=== PATIENT | female | born 1965 | race Caucasian/White ===

== ENCOUNTER 2016-09-03 14:21 | Emergency (ER) | payer OTHER ==
[2016-09-03] MEDS ORDERED: Sodium Chloride 0.9% 1,000 ML IV ONE ×2 (15:01→16:45)
[2016-09-03] MEDS ORDERED: Sodium Chloride 0.9% 1,000 ML ONE ×2 (15:16→16:57)
[2016-09-03 15:20] LABS: RBC URINE 2 /hpf (0-3); URINE BILIRUBIN NEGATIVE (NEGATIVE); URINE BLOOD NEGATIVE (NEGATIVE); URINE COLOR Amber (YELLOW); URINE GLUCOSE (UA) NORMAL (Normal); URINE KETONE NEGATIVE (NEGATIVE); URINE LEUKOCYTE ESTERASE NEG Leu/uL (Negative); URINE PROTEIN 1+ mg/dL (NEGATIVE); WBC URINE 4 /hpf (0-5)
[2016-09-03 15:21] LABS: BASO % 0.4 % (0.0-2.0); EOS # 0.1 K/uL (0.0-0.7); EOS % 0.7 % (0.0-4.0); HEMATOCRIT 39.4 % (34.0-47.0); LYMPH % 9.7 % (20.0-40.0); MEAN CELL VOLUME 81.6 fL (81.0-99.0); MEAN CORPUSCULAR HGB CONC 31.9 g/dL (33.0-37.0); MEAN PLATELET VOLUME 10.4 fL (7.2-11.7); MONO # 0.9 K/uL (0.0-0.8); MONO % 8.5 % (0.0-10.0); PLATELET COUNT 219 K/uL (130-400); WHITE BLOOD COUNT 10.5 K/uL (4.8-10.8)
[2016-09-03 15:43] LABS: EOSINOPHIL 1 % (0-4); TOTAL CELLS COUNTED 100
[2016-09-03] MEDS ORDERED: cefTRIAXone IV 1 gm in Dextros 50 ML IVPB ONE ×2 (15:43→16:03)
[2016-09-03 15:44] LABS: NEUTROPHIL 81 % (50-75)
[2016-09-03 15:53] LABS: CHLORIDE 101 mmol/L (98-107); SODIUM 134 mmol/L (132-148)
[2016-09-03 15:55] LABS: GFR AFRICAN-AMERICAN > 60
[2016-09-03 15:56] LABS: ALB/GLOB RATIO 1.4 (1.0-2.1); ALKALINE PHOSPHATASE 95 U/L (38-126); ALT/SGPT 25 U/L (9-52); AST/SGOT 41 U/L (14-36); BILIRUBIN,TOTAL 0.8 mg/dL (0.2-1.3); BLOOD UREA NITROGEN 14 mg/dL (7-17); CALCIUM 8.9 mg/dl (8.6-10.4); CARBON DIOXIDE 22 mmol/L (22-30); GLUCOSE,RANDOM 108 mg/dL (65-105); TOTAL PROTEIN 7.4 g/dL (6.3-8.3)
--- NOTE | 2016-09-03 16:06 | C.PDOC ---
History Of Present Illness 51 yr old female presents to the ER with complaints of left flank pain since morning, which radiates to the left groin. Patient also reports of urinary retention, states she has not been able to urinate since morning. Patient reports the pain is sharp and constant, 10/10. Patient denies fever, chills, chest pain, SOB, nausea. vomiting, abdominal pain, diarrhea, constipation, weakness or numbness. Time Seen by Provider: 09/03/16 14:53 Chief Complaint (Nursing): Female Genitourinary History Per: Patient History/Exam Limitations: no limitations Onset/Duration Of Symptoms: Sudden Onset (Since morning) Current Symptoms Are (Timing): Still Present Quality Of Discomfort: Sharp Past Medical History Reviewed: Historical Data, Nursing Documentation, Vital Signs Vital Signs: Last Vital Signs Temp 98.8 F 09/03/16 15:58 Pulse 75 09/03/16 15:58 Resp 19 09/03/16 15:58 BP 108/68 09/03/16 15:58 Pulse Ox 98 09/03/16 17:24 Family History: States: No Known Family Hx - Social History Hx Alcohol Use: No Hx Substance Use: No - Immunization History Hx Tetanus Toxoid Vaccination: No Hx Influenza Vaccination: No Hx Pneumococcal Vaccination: No Review Of Systems Except As Marked, All Systems Reviewed And Found Negative. Constitutional: Negative for: Fever, Chills Cardiovascular: Negative for: Chest Pain Respiratory: Negative for: Shortness of Breath Gastrointestinal: Negative for: Nausea, Vomiting, Abdominal Pain, Diarrhea Genitourinary: Positive for: Other ((+) Urine retention) Musculoskeletal: Positive for: Back Pain (Left flank pain) Neurological: Negative for: Weakness, Numbness Physical Exam - Physical Exam Appears: Well, Non-toxic, No Acute Distress Skin: Warm, Dry, No Rash Head: Atraumatic, Normacephalic Oral Mucosa: Moist Throat: Normal, No Erythema, No Exudate, No Drooling Neck: Normal, Normal ROM, Supple Chest: Symmetrical, No Tenderness Cardiovascular: Rhythm Regular, No Murmur Respiratory: Normal Breath Sounds, No Rales, No Rhonchi, No Stridor, No Wheezing Gastrointestinal/Abdominal: Soft, Tenderness (Left side tenderness), No Guarding , No Rebound Back: CVA Tenderness (mild left ) Extremity: Normal ROM, No Swelling Neurological/Psych: Oriented x3, Normal Speech, Normal Motor ED Course And Treatment - Laboratory Results Result Diagrams: 09/03/16 15:18 09/03/16 15:18 O2 Sat by Pulse Oximetry: 98 - CT Scan/US CT - Abdomen & Pelvis Other Rad Studies (CT/US): Read By Radiologist, Radiology Report Reviewed CT/US Interpretation: PROCEDURE: CT Abdomen and Pelvis without Oral or IV contrast. HISTORY: left flank pain. COMPARISON: CT abdomen and pelvis without oral or IV contrast performed 02/27/15. TECHNIQUE: Contiguous axial images of the abdomen and pelvis. No oral or IV contrast administered. Coronal and Sagittal reformats generated and reviewed. Radiation dose: Total exam DLP = 728.56 MGy-cm. This CT exam was performed using one or more of the following dose reduction techniques: Automated exposure control, adjustment of the mA and/ or kV according to patient size, and/or use of iterative reconstruction technique. FINDINGS: There is limited evaluation of the solid organs without the administration of IV contrast. LOWER THORAX: Mild bibasilar atelectasis. No visible pleural effusion or pneumothorax. LIVER: Unremarkable unenhanced appearance. GALLBLADDER AND BILE DUCTS: Cholecystectomy. PANCREAS: Unremarkable unenhanced appearance. SPLEEN: Unremarkable unenhanced appearance. ADRENALS: Unremarkable unenhanced appearance. KIDNEYS AND URETERS : Distal left ureteral calculus with proximal hydroureteronephrosis. No right- sided hydronephrosis or obstructing renal calculus. BLADDER: Under distention of the urinary bladder limits evaluation. REPRODUCTIVE: Uterus is present. Rounded soft tissue density along the left lateral wall of the uterus likely represents an exophytic fibroid. APPENDIX: The appendix appears within normal limits of caliber. No secondary signs of acute appendicitis. BOWEL: Postsurgical gastric changes. The stomach is nondistended. Lack of oral contrast limits evaluation for bowel pathology. The bowel loops appear within normal limits of caliber without evidence of intestinal obstruction. PERITONEUM : No significant free fluid. No definite free air. LYMPH NODES: No bulky lymphadenopathy identified. VASCULATURE: No aortic aneurysm. BONES: No acute osseous abnormality is detected. OTHER FINDINGS: None. IMPRESSION: Distal 4mm left ureteral calculus with proximal hydroureteronephrosis. Rounded soft tissue density along the left lateral wall of the uterus likely represents an exophytic fibroid. Progress Note: Patient was able to urinate small amount for urinalysis. Medical Decision Making Medical Decision Making: PLAN: * CT - Abd & Pelvis * CBC * HCG Urine * Urinalysis * Pyridium PO * Morphin IVP * Toradol IVP * Cipro IVPB * Rocephin IVPB * Sodium Chloride IV Disposition - Disposition Referrals: Saji Lerma MD [Staff Provider] - [facility] [Outside] Disposition: HOME/ ROUTINE Disposition Time: 17:19 Condition: STABLE Additional Instructions: Siga con whitt doctor, o en la clinica. [place] [facility]. Regrese a la debbie de emergencua con cualquier otro problema. Prescriptions: Ciprofloxacin [Cipro] 1 tab PO BID #14 tab Ibuprofen [Motrin] 600 mg PO TID #15 tab Phenazopyridine HCl [Pyridium] 200 mg PO BID #6 tablet traMADol [Ultram] 50 mg PO BID #6 tab Instructions: Urinary Tract Infection in Women (ED), Renal Colic (ED) Forms: Gen Discharge Inst Singaporean - POA Present On Arrival: None - Clinical Impression Clinical Impression: Renal colic on left side, UTI (urinary tract infection) - Scribe Statement The provider has reviewed the documentation as recorded by the [place] Lacey Provider Attestation: All medical record entries made by the Scribe were at my direction and personally dictated by me. I have reviewed the chart and agree that the record accurately reflects my personal performance of the history, physical exam, medical decision making, and the department course for this patient. I have also personally directed, reviewed, and agree with the discharge instructions and disposition.
[2016-09-03] MEDS ORDERED: Ciprofloxacin 400mg/200ml D5W 400 MG/200 ML BAG IVPB ONE ×2 (16:30→16:57)
--- NOTE | 2016-09-03 16:59 | CT ---
PROCEDURE: CT Abdomen and Pelvis without Oral or IV contrast. HISTORY: left flank pain COMPARISON: CT abdomen and pelvis without oral or IV contrast performed 02/27/15 TECHNIQUE: Contiguous axial images of the abdomen and pelvis. No oral or IV contrast administered. Coronal and Sagittal reformats generated and reviewed. Radiation dose: Total exam DLP = 728.56 MGy-cm. This CT exam was performed using one or more of the following dose reduction techniques: Automated exposure control, adjustment of the mA and/or kV according to patient size, and/or use of iterative reconstruction technique. FINDINGS: There is limited evaluation of the solid organs without the administration of IV contrast. LOWER THORAX: Mild bibasilar atelectasis. No visible pleural effusion or pneumothorax. LIVER: Unremarkable unenhanced appearance. GALLBLADDER AND BILE DUCTS: Cholecystectomy. PANCREAS: Unremarkable unenhanced appearance. SPLEEN: Unremarkable unenhanced appearance. ADRENALS: Unremarkable unenhanced appearance. KIDNEYS AND URETERS: Distal left ureteral calculus with proximal hydroureteronephrosis. No right-sided hydronephrosis or obstructing renal calculus. BLADDER: Under distention of the urinary bladder limits evaluation. REPRODUCTIVE: Uterus is present. Rounded soft tissue density along the left lateral wall of the uterus likely represents an exophytic fibroid. APPENDIX: The appendix appears within normal limits of caliber. No secondary signs of acute appendicitis. BOWEL: Postsurgical gastric changes. The stomach is nondistended. Lack of oral contrast limits evaluation for bowel pathology. The bowel loops appear within normal limits of caliber without evidence of intestinal obstruction. PERITONEUM: No significant free fluid. No definite free air. LYMPH NODES: No bulky lymphadenopathy identified. VASCULATURE: No aortic aneurysm. BONES: No acute osseous abnormality is detected. OTHER FINDINGS: None. IMPRESSION: Distal 4mm left ureteral calculus with proximal hydroureteronephrosis. Rounded soft tissue density along the left lateral wall of the uterus likely represents an exophytic fibroid.
[2016-09-03 19:47] VITALS: BP 109/74; PULSE 74; RESP 19; TEMP 98.4; O2SAT 98
== END 2016-09-03 19:46 | disposition home or self-care (01) ==
LOC: C.ER 14:21
DX: N13.2 Hydronephrosis with renal and ureteral calculous obstruction (principal); N39.0 Urinary tract infection, site not specified
CPT/HCPCS: 74176; 80053; 81001; 84703; 85025; 87086; 96361; 96365; 96375; 99285; J0696; J0744; J1885; J2270; J7040

== ENCOUNTER 2017-07-19 09:55 | Emergency (ER) | payer OTHER ==
[2017-07-19 09:55] VITALS: BMI 33.8
[2017-07-19 10:01] VITALS: BP 121/84; PULSE 75; RESP 20; TEMP 98.3; O2SAT 100
--- NOTE | 2017-07-19 10:18 | C.PDOC ---
History Of Present Illness 52 y/o female presents to the ER complaining of pain to the heel of her left foot which has been present for the past 1 month. Patient states that the pain has been constant. Patient reports that the pain radiates to the left hip. She notes that the pain is worse with standing and walking. She rates the pain 10/ 10 on the pain scale. Patient denies trauma and other complaints. Time Seen by Provider: 07/19/17 10:06 Chief Complaint (Nursing): Lower Extremity Problem/Injury History Per: Patient History/Exam Limitations: no limitations Onset/Duration Of Symptoms: Days Current Symptoms Are (Timing): Still Present Severity: Moderate Pain Scale Rating Of: 10 Past Medical History Reviewed: Historical Data, Nursing Documentation, Vital Signs Vital Signs: Last Vital Signs Temp 98.3 F 07/19/17 09:59 Pulse 75 07/19/17 09:59 Resp 20 07/19/17 09:59 BP 121/84 07/19/17 09:59 Pulse Ox 100 07/19/17 12:59 - Medical History PMH: No Chronic Diseases Surgical History: Cholecystectomy Family History: States: No Known Family Hx - Social History Hx Alcohol Use: No Hx Substance Use: No - Immunization History Hx Tetanus Toxoid Vaccination: No Hx Influenza Vaccination: No Hx Pneumococcal Vaccination: No Review Of Systems Except As Marked, All Systems Reviewed And Found Negative. Constitutional: Negative for: Fever, Chills Musculoskeletal: Positive for: Other (pain to heel of left foot) Physical Exam - Physical Exam Appears: Non-toxic, No Acute Distress Skin: Normal Color, Warm Head: Atraumatic, Normacephalic Eye(s): bilateral: Normal Inspection Neck: Supple Chest: Symmetrical Extremity: Tenderness (severe tenderness to heel of left foot), No Deformity, No Swelling Neurological/Psych: Oriented x3, Normal Speech, Normal Motor, Normal Sensation ED Course And Treatment O2 Sat by Pulse Oximetry: 100 (RA) Pulse Ox Interpretation: Normal - Other Rad X-Ray- Left Foot X-Ray: Viewed By Me, Read By Radiologist Interpretation: PROCEDURE: Left Foot Radiographs. HISTORY: heel pain. COMPARISON: None. FINDINGS: BONES: A tiny Achilles tendon insertional enthesophyte is noted. No prominent inferior calcaneal spur noted. No fracture. JOINTS: Normal. SOFT TISSUES: Prominent reticulation of the heel fat pad. Correlate clinically with any potential plantar fasciitis symptoms. OTHER FINDINGS: None. IMPRESSION: No calcaneal fracture seen. No calcaneal prominent inferior spur noted. Small Achilles tendon insertional enthesophyte noted. Prominent reticulation of the heel fat pad. Correlate clinically with any potential plantar fasciitis symptoms Medical Decision Making Medical Decision Making: Plan: --Tylenol 600 mg PO --Motrin 975 mg PO --X-Ray- Left Foot Spoke with Podiatry, will go to clinic on Sunday Disposition Counseled Patient/Family Regarding: Diagnosis, Need For Followup, Rx Given - Disposition Referrals: [facility] [Outside] Disposition: HOME/ ROUTINE Disposition Time: 11:30 Condition: STABLE Additional Instructions: Siga en la clinica de Podiat[facility] [place] [facility] Prescriptions: Ibuprofen [Motrin] 600 mg PO TID #15 tab Instructions: Heel Spurs (DC) Forms: Gen Discharge Inst Icelandic, [facility] (Icelandic) - POA Present On Arrival: None - Clinical Impression Clinical Impression: Heel spur - Scribe Statement The provider has reviewed the documentation as recorded by the Neida Deutsch Provider Attestation: All medical record entries made by the Scribe were at my direction and personally dictated by me. I have reviewed the chart and agree that the record accurately reflects my personal performance of the history, physical exam, medical decision making, and the department course for this patient. I have also personally directed, reviewed, and agree with the discharge instructions and disposition.
--- NOTE | 2017-07-19 10:41 | RAD ---
PROCEDURE: Left Foot Radiographs. HISTORY: heel pain COMPARISON: None. FINDINGS: BONES: A tiny Achilles tendon insertional enthesophyte is noted. No prominent inferior calcaneal spur noted. No fracture. JOINTS: Normal. SOFT TISSUES: Prominent reticulation of the heel fat pad. Correlate clinically with any potential plantar fasciitis symptoms OTHER FINDINGS: None. IMPRESSION: No calcaneal fracture seen. No calcaneal prominent inferior spur noted. Small Achilles tendon insertional enthesophyte noted. Prominent reticulation of the heel fat pad. Correlate clinically with any potential plantar fasciitis symptoms
== END 2017-07-19 11:45 | disposition home or self-care (01) ==
LOC: C.ER 09:55
DX: M77.32 Calcaneal spur, left foot (principal)